=== PATIENT | male | born 1955 | race Caucasian/White ===

== ENCOUNTER → 2021-06-05 | Outpatient (CLI) | payer BC | LOC: RAD 07:15 → VAS 07:36 → RAD 07:36 | DX: Z13.6 Encounter for screening for cardiovascular disorders (principal); I82.462 Acute embolism and thrombosis of left calf muscular vein; Z96.652 Presence of left artificial knee joint ==

== ENCOUNTER → 2024-05-11 | Outpatient (CLI) | payer MEDICARE | LOC: RAD 08:46 | DX: R10.11 Right upper quadrant pain (principal); R10.12 Left upper quadrant pain; Z87.442 Personal history of urinary calculi ==